=== PATIENT | male | born 1970 | race Caucasian/White ===

== ENCOUNTER 2021-02-05 10:46 | Emergency (ER) | payer BC, OTHER ==
[2021-02-05 11:06] VITALS: BMI 21.9
[2021-02-05] MEDS ORDERED: KETOROLAC TROMETHAMINE 30 MG/1 ML VIAL IVPUSH ONE (11:44)
[2021-02-05] MEDS ORDERED: KETOROLAC TROMETHAMINE 30 MG/1 ML VIAL ONE (12:00)
[2021-02-05 12:07] LABS: BASO % 1.1 % (0-2.0); EOS % 1.7 % (0-4.5); HEMATOCRIT 38.4 % (35.4-49); HEMOGLOBIN 13.5 GM/dL (11.7-16.9); LYMPH % 13.3 % (8-40); MCHC 35.2 g/dl (32.0-35.9); MEAN CELL VOLUME 82.5 fl (80-96); MEAN PLT VOLUME 8.5 fl (7.5-11.1); MONO % 7.5 % (3.8-10.2); NEUT % 76.4 % (42.8-82.8); PLATELET COUNT 211 10^3/uL (134-434); RBC 4.66 M/mm3 (4.00-5.60); RDW 13.1 % (11.9-15.9); WHITE BLOOD COUNT 7.2 K/mm3 (4.0-10.0)
[2021-02-05 12:19] LABS: INR 1.18 (0.83-1.09); PROTHROMBIN TIME (PATIENT) 13.8 SEC (9.7-13.0)
[2021-02-05 12:22] LABS: ACTIVATED PTT 32.5 SECONDS (25.2-36.5)
[2021-02-05 12:35] LABS: CHLORIDE 104 mmol/L (98-107); SODIUM 139 mmol/L (136-145)
[2021-02-05 12:37] LABS: ALBUMIN 3.4 g/dl (3.4-5.0); ANION GAP 6 MMOL/L (8-16); BLOOD UREA NITROGEN 14.4 mg/dL (7-18); CALCIUM 8.8 mg/dL (8.5-10.1); CO2 29 mmol/L (21-32); GLUCOSE,RANDOM 87 mg/dL (74-106)
[2021-02-05 12:40] LABS: SGOT/AST 26 U/L (15-37); SGPT/ALT 35 U/L (13-61)
[2021-02-05 12:41] LABS: CREATININE 0.7 mg/dL (0.55-1.3)
[2021-02-05 12:42] LABS: BILIRUBIN,TOTAL 0.5 mg/dL (0.2-1); TOT PROT 6.6 g/dl (6.4-8.2)
[2021-02-05 12:43] LABS: ALK PHOS 58 U/L (45-117)
[2021-02-05 12:45] LABS: N-TERMINAL BNP 125.8 pg/ml (5-125)
[2021-02-05 15:13] VITALS: BP 103/63; PULSE 53; TEMP 98.1
== END 2021-02-05 15:34 | disposition home or self-care (01) ==
LOC: JER 10:46
PROC: 3E0233Z Introduction of Anti-inflammatory into Muscle, Percutaneous Approach (ICD-10-PCS; principal; 2021-02-05)
DX: R07.9 Chest pain, unspecified (principal)
CPT/HCPCS: 36415; 71046-TC-FY; 71275-TC; 80053; 82550; 82553; 83880; 84484; 85025; 85379; 85610; 85730; 93005; 93010; 99284-25; Q9967

== ENCOUNTER 2021-08-21 14:34 | Inpatient (IN) | payer OTHER ==
[2021-08-21] MEDS ORDERED: LOPERAMIDE HCL 2 MG CAPSULE PO PRN (16:38)
[2021-08-21] MEDS ORDERED: MELATONIN 5 MG TABLETS PO PRN (16:38)
[2021-08-21] MEDS ORDERED: BISMUTH SUBSALICYLATE 524 MG/30 ML PO PRN (16:38)
[2021-08-21] MEDS ORDERED: MAG HYDROX/AL HYDROX/SIMETH 30 ML UNIT-DOSE CUP PO PRN (16:38)
[2021-08-21] MEDS ORDERED: ACETAMINOPHEN 325 MG TABLET (FP) PO PRN ×2 (16:38)
[2021-08-21] MEDS ORDERED: METHOCARBAMOL 500 MG TABLET PO PRN (16:38)
[2021-08-21] MEDS ORDERED: BENZOCAINE/MENTHOL (CHLORASEPTIC ) LOZENGE MM PRN (16:38)
[2021-08-21] MEDS ORDERED: P-EPHED 60MG/TRIPROLIDI 2.5MG TABLET PO PRN (16:38)
[2021-08-21] MEDS ORDERED: guaiFENesin 200 MG/10 ML 10 ML UNIT-DOSE CUPS PO PRN (16:38)
[2021-08-21] MEDS ORDERED: hydrOXYzine PAMOATE 25 MG CAPSULE (FP) PO PRN (16:38)
[2021-08-21] MEDS ORDERED: ONDANSETRON *ODT* 4 MG TABLET SL PRN (16:38)
[2021-08-21] MEDS ORDERED: MAGNESIUM CITRATE 300 ML BOTTLE PO PRN (16:38)
[2021-08-21] MEDS ORDERED: NICOTINE POLACRILEX 2 MG GUM BUC PRN (16:38)
[2021-08-21] MEDS ORDERED: IBUPROFEN 400 MG TABLET (FP) PO PRN (16:38)
[2021-08-21] MEDS ORDERED: MAGNESIUM HYDROX 2400MG/30ML ORAL SUSPENSION 30 ML CUP PO PRN (16:38)
[2021-08-21] MEDS ORDERED: DICYCLOMINE HCL 10 MG CAPSULE PO PRN (16:38)
[2021-08-21 18:10] VITALS: BMI 21.4
[2021-08-22] MEDS: THIAMINE HCL 100 MG TABLET (FP) PO SCH ×2 (00:39→22:53)
[2021-08-22] MEDS ORDERED: diazePAM 5 MG TABLET PO PRN (08:00)
[2021-08-22] MEDS: PRENATAL VITAMINS W/ FOLIC ACID TABLET (FP) PO SCH (11:17)
[2021-08-22 12:06] LABS: HEMATOCRIT 41.9 % (35.4-49); HEMOGLOBIN 14.1 GM/dL (11.7-16.9); MCH 27.9 pg (25.7-33.7); MCHC 33.6 g/dl (32.0-35.9); MEAN CELL VOLUME 83.1 fl (80-96); PLATELET COUNT 208 10^3/uL (134-434); RBC 5.05 M/mm3 (4.00-5.60); RDW 13.1 % (11.9-15.9); WHITE BLOOD COUNT 7.2 K/mm3 (4.0-10.0)
[2021-08-22 12:08] LABS: CALCIUM 9.5 mg/dL (8.5-10.1)
[2021-08-22 12:09] LABS: ALBUMIN 4.2 g/dl (3.4-5.0)
[2021-08-22 12:12] LABS: CREATININE 0.8 mg/dL (0.55-1.3)
[2021-08-22 12:14] LABS: BILIRUBIN,TOTAL 1.2 mg/dL (0.2-1); TOT PROT 7.4 g/dl (6.4-8.2)
[2021-08-22] MEDS ORDERED: TRIMETHOBENZAMIDE HCL 300 MG CAPSULE PO ONE (20:30)
[2021-08-22] MEDS ORDERED: TRIMETHOBENZAMIDE HCL 200MG/2ML INJ IM PRN (21:32)
[2021-08-23] MEDS ORDERED: BUPRENORPHINE HCL 2 MG TAB.SUBL SL ONE (00:13)
[2021-08-23] MEDS ORDERED: BUPRENORPHINE/NALOXONE 8 MG/2 MG FILM PACKET SL ONE ×2 (00:24→10:00)
[2021-08-23] MEDS: PRENATAL VITAMINS W/ FOLIC ACID TABLET (FP) PO SCH (10:02)
[2021-08-23] MEDS ORDERED: cloNIDine HCL 0.1 MG TABLET PO ONE (21:41)
[2021-08-23] MEDS: THIAMINE HCL 100 MG TABLET (FP) PO SCH (23:02)
[2021-08-23] MEDS: BUPRENORPHINE/NALOXONE 4 MG/1 MG FILM PACKET SL SCH (23:02)
[2021-08-24] MEDS: BUPRENORPHINE/NALOXONE 4 MG/1 MG FILM PACKET SL SCH ×2 (10:46→22:34)
[2021-08-24] MEDS: PRENATAL VITAMINS W/ FOLIC ACID TABLET (FP) PO SCH (10:47)
[2021-08-24] MEDS ORDERED: amLODIPine BESYLATE 10 MG TABLET (FP) PO SCH (12:15)
[2021-08-24 17:29] VITALS: BP 132/97; PULSE 143; TEMP 97.3
[2021-08-24] MEDS: THIAMINE HCL 100 MG TABLET (FP) PO SCH (22:34)
[2021-08-25] MEDS ORDERED: BUPRENORPHINE/NALOXONE 2 MG/0.5 MG FILM PACKET SL ONE (10:00)
[2021-08-25 16:08] LABS: SARS-CoV-2 NAA Not Detected (Not Detected)
[2021-08-25] MEDS ORDERED: BUPRENORPHINE/NALOXONE 4 MG/1 MG FILM PACKET SL ONE (22:00)
[2021-08-26] MEDS ORDERED: BUPRENORPHINE/NALOXONE 2 MG/0.5 MG FILM PACKET SL SCH (10:00)
== END 2021-08-24 23:58 | disposition short-term general hospital (02) | DRG 773 ==
LOC: YASAS 14:34 → Y3N 08-22 10:22
PROVIDERS: ADMIT Allergy & Immunology; ATTEND Surgery
PROC: HZ2ZZZZ Detoxification Services for Substance Abuse Treatment (ICD-10-PCS; principal; 2021-08-22)
DX: F11.23 Opioid dependence with withdrawal (principal); F12.20 Cannabis dependence, uncomplicated; F17.210 Nicotine dependence, cigarettes, uncomplicated; E80.6 Other disorders of bilirubin metabolism; R07.9 Chest pain, unspecified; R00.0 Tachycardia, unspecified; R73.9 Hyperglycemia, unspecified; Z87.19 Personal history of other diseases of the digestive system
CPT/HCPCS: 36415; 80053; 85027; 86780; 87811; 93005; 93010; C9803-CS; J0735; Q0162; U0003; U0005

== ENCOUNTER 2021-08-24 19:12 | Inpatient (IN) | payer OTHER ==
[2021-08-24 19:41] VITALS: BMI 20.7
[2021-08-24] MEDS ORDERED: FAMOTIDINE 20 MG/50 ML IVPB 20 MG/50 ML MG IVPB ONE ×2 (19:56→20:03)
[2021-08-24] MEDS ORDERED: ACETAMINOPHEN 1000 MG/100 ML BAG IVPB ONE (19:56)
[2021-08-24] MEDS ORDERED: ONDANSETRON 4 MG/2 ML VIAL IVPUSH ONE (19:56)
[2021-08-24] MEDS ORDERED: SODIUM CHLORIDE 0.9% 500 ML INFUS.BAG IV ONE (19:56)
[2021-08-24] MEDS ORDERED: ONDANSETRON 4 MG/2 ML VIAL ONE (20:03)
[2021-08-24] MEDS ORDERED: ACETAMINOPHEN INJECTION 100 ML IVPB ONE (20:03)
[2021-08-24 20:17] LABS: BASO % 0.3 % (0-2.0); HEMATOCRIT 49.7 % (35.4-49); HEMOGLOBIN 17.1 GM/dL (11.7-16.9); LYMPH % 10.1 % (8-40); MCH 27.8 pg (25.7-33.7); MCHC 34.5 g/dl (32.0-35.9); MEAN CELL VOLUME 80.7 fl (80-96); MEAN PLT VOLUME 8.2 fl (7.5-11.1); MONO % 12.1 % (3.8-10.2); NEUT % 77.5 % (42.8-82.8); PLATELET COUNT 254 10^3/uL (134-434); RBC 6.16 M/mm3 (4.00-5.60); RDW 13.5 % (11.9-15.9); WHITE BLOOD COUNT 17.2 K/mm3 (4.0-10.0)
[2021-08-24 20:23] LABS: INR 1.22 (0.83-1.09); PROTHROMBIN TIME (PATIENT) 14.1 SEC (9.7-13.0)
[2021-08-24 20:25] LABS: ACTIVATED PTT 33.7 SECONDS (25.2-36.5)
[2021-08-24 20:37] LABS: CHLORIDE 95 mmol/L (98-107); SODIUM 133 mmol/L (136-145)
[2021-08-24 20:39] LABS: ALBUMIN 4.4 g/dl (3.4-5.0); ANION GAP 10 MMOL/L (8-16); BLOOD UREA NITROGEN 23.7 mg/dL (7-18); CALCIUM 10.1 mg/dL (8.5-10.1); CO2 28 mmol/L (21-32); GLUCOSE,RANDOM 119 mg/dL (74-106); LIPASE 257 U/L (73-393); MAGNESIUM 2.3 mg/dL (1.8-2.4)
[2021-08-24 20:42] LABS: CREATININE 0.8 mg/dL (0.55-1.3); SGOT/AST 75 U/L (15-37); SGPT/ALT 61 U/L (13-61)
[2021-08-24 20:44] LABS: BILIRUBIN,TOTAL 1.3 mg/dL (0.2-1)
[2021-08-24 20:45] LABS: ALK PHOS 69 U/L (45-117)
[2021-08-24] MEDS ORDERED: ASPIRIN 81 MG CHEWABLE TABLETS PO ONE (20:49)
[2021-08-24] MEDS ORDERED: ASPIRIN 81 MG CHEWABLE TABLETS ONE (20:57)
[2021-08-24] MEDS ORDERED: ENOXAPARIN NA (PORCINE) 60 MG/0.6 ML DISP.SYRIN SQ ONE ×2 (20:57→21:00)
[2021-08-24] MEDS ORDERED: ENOXAPARIN NA (PORCINE) 60 MG/0.6 ML DISP.SYRIN SQ SCH (21:00)
[2021-08-24] MEDS ORDERED: SODIUM CHLORIDE 1,000 ML IV SCH (22:45)
[2021-08-24] MEDS ORDERED: THIAMINE HCL 200 MG/2 ML VIAL IVPB ONE (22:50)
[2021-08-24] MEDS ORDERED: SODIUM CHLORIDE 500 ML IV STA (22:54)
[2021-08-24] MEDS ORDERED: MELATONIN 5 MG TABLETS PO PRN (23:00)
[2021-08-24] MEDS ORDERED: TRIMETHOBENZAMIDE HCL 200MG/2ML INJ IM PRN (23:00)
[2021-08-24] MEDS ORDERED: BUPRENORPHINE/NALOXONE 4 MG/1 MG FILM PACKET SL ONE (23:03)
[2021-08-24] MEDS ORDERED: ATORVASTATIN CA 80 MG TABLET (FP) PO SCH (23:05)
[2021-08-24] MEDS ORDERED: BUPRENORPHINE/NALOXONE 2 MG/0.5 MG FILM PACKET SL ONE (23:15)
[2021-08-25] MEDS ORDERED: ATORVASTATIN CA 80 MG TABLET (FP) ONE (00:01)
[2021-08-25] MEDS ORDERED: THIAMINE HCL 200 MG/2 ML VIAL ONE (00:01)
[2021-08-25] MEDS ORDERED: BUPRENORPHINE/NALOXONE 2 MG/0.5 MG FILM PACKET ONE ×3 (00:07→09:25)
[2021-08-25] MEDS ORDERED: ALBUTEROL SO4 HFA INHALER IH PRN (02:03)
[2021-08-25 02:42] LABS: BASO % 0.3 % (0-2.0); HEMATOCRIT 47.1 % (35.4-49); HEMOGLOBIN 15.9 GM/dL (11.7-16.9); LYMPH % 11.6 % (8-40); MCH 27.7 pg (25.7-33.7); MCHC 33.7 g/dl (32.0-35.9); MEAN PLT VOLUME 8.9 fl (7.5-11.1); NEUT % 76.1 % (42.8-82.8); PLATELET COUNT 228 10^3/uL (134-434); RBC 5.74 M/mm3 (4.00-5.60); RDW 13.5 % (11.9-15.9); WHITE BLOOD COUNT 14.8 K/mm3 (4.0-10.0)
[2021-08-25] MEDS ORDERED: POLYETHYLENE GLYCOL (HEALTHYLAX) 3350 17 GM PACKET ONE ×2 (05:44→15:41)
[2021-08-25] MEDS ORDERED: DOCUSATE SODIUM 100 MG CAPSULE (FP) PO ONE ×2 (05:45→15:42)
[2021-08-25] MEDS: DOCUSATE SODIUM 100 MG CAPSULE (FP) PO SCH ×2 (06:16→15:40)
[2021-08-25] MEDS: POLYETHYLENE GLYCOL (HEALTHYLAX) 3350 17 GM PACKET PO SCH ×2 (06:17→15:40)
[2021-08-25 06:41] LABS: URINE APPEARANCE CLEAR; URINE BILIRUBIN NEGATIVE (NEGATIVE); URINE COLOR YELLOW; URINE GLUCOSE (UA) NEGATIVE (NEGATIVE); URINE KETONE NEGATIVE (NEGATIVE); URINE LEUK ESTERASE NEGATIVE (NEGATIVE); URINE NITRITE NEGATIVE (NEGATIVE); URINE PROTEIN TRACE (NEGATIVE)
[2021-08-25 07:39] LABS: BASO % 0.2 % (0-2.0); HEMATOCRIT 45.4 % (35.4-49); HEMOGLOBIN 15.3 GM/dL (11.7-16.9); LYMPH % 11.5 % (8-40); MCH 27.3 pg (25.7-33.7); MCHC 33.6 g/dl (32.0-35.9); MEAN CELL VOLUME 81.3 fl (80-96); MEAN PLT VOLUME 8.7 fl (7.5-11.1); MONO % 11.7 % (3.8-10.2); NEUT % 76.6 % (42.8-82.8); PLATELET COUNT 212 10^3/uL (134-434); RBC 5.59 M/mm3 (4.00-5.60); RDW 13.3 % (11.9-15.9); WHITE BLOOD COUNT 12.8 K/mm3 (4.0-10.0)
[2021-08-25 08:15] LABS: BILIRUBIN,TOTAL 1.3 mg/dL (0.2-1)
[2021-08-25 08:16] LABS: TOT PROT 6.9 g/dl (6.4-8.2)
[2021-08-25 08:18] LABS: PHOSPHOROUS 2.6 mg/dL (2.5-4.9)
[2021-08-25 08:21] LABS: CALCIUM 8.7 mg/dL (8.5-10.1)
[2021-08-25 08:22] LABS: ALBUMIN 3.8 g/dl (3.4-5.0); MAGNESIUM 2.2 mg/dL (1.8-2.4)
[2021-08-25 08:24] LABS: CREATININE 0.8 mg/dL (0.55-1.3)
[2021-08-25] MEDS ORDERED: METOPROLOL TARTRATE 25 MG TABLET (FP) ONE (09:24)
[2021-08-25] MEDS ORDERED: FOLIC ACID 1 MG TABLET (FP) ONE (09:25)
[2021-08-25] MEDS ORDERED: ENOXAPARIN NA (PORCINE) 60 MG/0.6 ML DISP.SYRIN SQ ONE (09:25)
[2021-08-25] MEDS ORDERED: THIAMINE HCL 100 MG TABLET (FP) ONE (09:25)
[2021-08-25] MEDS ORDERED: FOLIC ACID 1 MG TABLET (FP) PO SCH (10:00)
[2021-08-25] MEDS ORDERED: THIAMINE HCL 100 MG TABLET (FP) PO SCH (10:00)
[2021-08-25] MEDS ORDERED: METOPROLOL TARTRATE 25 MG TABLET (FP) PO SCH ×2 (10:00→22:00)
[2021-08-25] MEDS ORDERED: NICOTINE 14 MG/24 HOURS TOPICAL PATCH TD SCH (10:00)
[2021-08-25] MEDS ORDERED: ENOXAPARIN NA (PORCINE) 60 MG/0.6 ML DISP.SYRIN SQ SCH (10:00)
[2021-08-25] MEDS ORDERED: BUPRENORPHINE/NALOXONE 2 MG/0.5 MG FILM PACKET SL ONE ×2 (10:00→22:00)
[2021-08-25 15:57] VITALS: BP 142/92; PULSE 72; TEMP 98.1
[2021-08-26] MEDS ORDERED: BUPRENORPHINE/NALOXONE 2 MG/0.5 MG FILM PACKET SL ONE (10:00)
== END 2021-08-25 17:49 | disposition home or self-care (01) | DRG 198 ==
LOC: JER 19:12 → JERBED 21:11
PROVIDERS: ADMIT Internal Medicine; ATTEND Nurse Practitioner Acute Care
DX: I24.8 Other forms of acute ischemic heart disease (principal); R07.89 Other chest pain; E86.0 Dehydration; F10.20 Alcohol dependence, uncomplicated; F11.10 Opioid abuse, uncomplicated; F17.210 Nicotine dependence, cigarettes, uncomplicated; I45.10 Unspecified right bundle-branch block; J45.909 Unspecified asthma, uncomplicated; K59.00 Constipation, unspecified; D72.829 Elevated white blood cell count, unspecified; D75.1 Secondary polycythemia; K59.03 Drug induced constipation; I50.30 Unspecified diastolic (congestive) heart failure; F12.90 Cannabis use, unspecified, uncomplicated
CPT/HCPCS: 0241U-QW; 36415; 71045-TC-FY; 74176-TC; 80053; 80061; 81003; 83690; 83735; 84100; 84443; 84479; 84484; 85025; 85610; 85730; 87086; 93005; 93010; 93306-TC; 99285-25

== ENCOUNTER 2021-08-28 16:56 | Inpatient (IN) | payer OTHER ==
[2021-08-28 17:26] VITALS: BMI 18.4
[2021-08-28] MEDS ORDERED: guaiFENesin 200 MG/10 ML 10 ML UNIT-DOSE CUPS PO PRN (17:35)
[2021-08-28] MEDS ORDERED: MAGNESIUM HYDROX 2400MG/30ML ORAL SUSPENSION 30 ML CUP PO PRN (17:35)
[2021-08-28] MEDS ORDERED: P-EPHED 60MG/TRIPROLIDI 2.5MG TABLET PO PRN (17:35)
[2021-08-28] MEDS ORDERED: IBUPROFEN 400 MG TABLET (FP) PO PRN (17:35)
[2021-08-28] MEDS ORDERED: MAGNESIUM CITRATE 300 ML BOTTLE PO PRN (17:35)
[2021-08-28] MEDS ORDERED: LOPERAMIDE HCL 2 MG CAPSULE PO PRN (17:35)
[2021-08-28] MEDS ORDERED: MAG HYDROX/AL HYDROX/SIMETH 30 ML UNIT-DOSE CUP PO PRN (17:35)
[2021-08-28] MEDS ORDERED: NICOTINE 10 MG CARTRIDGE (INHALER) IH PRN (17:35)
[2021-08-28] MEDS: MELATONIN 5 MG TABLETS PO SCH (21:59)
[2021-08-28] MEDS: THIAMINE HCL 100 MG TABLET (FP) PO SCH (22:00)
[2021-08-28] MEDS: METOPROLOL TARTRATE 25 MG TABLET (FP) PO SCH (22:00)
[2021-08-28] MEDS: hydrOXYzine PAMOATE 25 MG CAPSULE (FP) PO SCH ×2 (22:01)
[2021-08-29] MEDS: hydrOXYzine PAMOATE 25 MG CAPSULE (FP) PO SCH ×2 (06:45→13:20)
[2021-08-29 10:16] LABS: PH,URINE 5.5 (5.0-8.0); URINE APPEARANCE CLEAR; URINE BILIRUBIN NEGATIVE (NEGATIVE); URINE COLOR YELLOW; URINE GLUCOSE (UA) NEGATIVE (NEGATIVE); URINE KETONE NEGATIVE (NEGATIVE); URINE LEUK ESTERASE NEGATIVE (NEGATIVE); URINE NITRITE NEGATIVE (NEGATIVE); URINE PROTEIN NEGATIVE (NEGATIVE); URINE UROBILINOGEN 0.2 mg/dL (0.2-1.0)
[2021-08-29] MEDS ORDERED: hydrOXYzine PAMOATE 25 MG CAPSULE (FP) PO PRN (10:34)
[2021-08-29] MEDS: METOPROLOL TARTRATE 25 MG TABLET (FP) PO SCH ×2 (10:40→21:21)
[2021-08-29] MEDS: PRENATAL VITAMINS W/ FOLIC ACID TABLET (FP) PO SCH (10:40)
[2021-08-29] MEDS: NICOTINE 7 MG/24 HOURS TOPICAL PATCH TD SCH (10:40)
[2021-08-29] MEDS: FOLIC ACID 1 MG TABLET (FP) PO SCH (10:40)
[2021-08-29] MEDS: THIAMINE HCL 100 MG TABLET (FP) PO SCH (21:21)
[2021-08-29] MEDS: MELATONIN 5 MG TABLETS PO SCH (21:22)
[2021-08-30] MEDS: METOPROLOL TARTRATE 25 MG TABLET (FP) PO SCH ×2 (09:54→21:18)
[2021-08-30] MEDS: PRENATAL VITAMINS W/ FOLIC ACID TABLET (FP) PO SCH (09:54)
[2021-08-30] MEDS: FOLIC ACID 1 MG TABLET (FP) PO SCH (09:54)
[2021-08-30] MEDS: NICOTINE 7 MG/24 HOURS TOPICAL PATCH TD SCH (09:56)
[2021-08-30] MEDS: MELATONIN 5 MG TABLETS PO SCH (21:18)
[2021-08-30] MEDS: THIAMINE HCL 100 MG TABLET (FP) PO SCH (21:18)
[2021-08-30] MEDS: ACETAMINOPHEN 325 MG TABLET (FP) PO PRN (21:18)
[2021-08-31] MEDS: ACETAMINOPHEN 325 MG TABLET (FP) PO PRN ×2 (06:04→20:43)
[2021-08-31] MEDS: METOPROLOL TARTRATE 25 MG TABLET (FP) PO SCH ×2 (10:04→21:31)
[2021-08-31] MEDS: NICOTINE 7 MG/24 HOURS TOPICAL PATCH TD SCH (10:04)
[2021-08-31] MEDS: PRENATAL VITAMINS W/ FOLIC ACID TABLET (FP) PO SCH (10:04)
[2021-08-31] MEDS: FOLIC ACID 1 MG TABLET (FP) PO SCH (10:04)
[2021-08-31] MEDS: MELATONIN 5 MG TABLETS PO SCH (21:31)
[2021-08-31] MEDS: THIAMINE HCL 100 MG TABLET (FP) PO SCH (21:31)
[2021-09-01] MEDS: FOLIC ACID 1 MG TABLET (FP) PO SCH (09:23)
[2021-09-01] MEDS: METOPROLOL TARTRATE 25 MG TABLET (FP) PO SCH (09:23)
[2021-09-01] MEDS: PRENATAL VITAMINS W/ FOLIC ACID TABLET (FP) PO SCH (09:23)
[2021-09-01] MEDS: NICOTINE 7 MG/24 HOURS TOPICAL PATCH TD SCH (09:23)
[2021-09-01 10:04] VITALS: BP 131/88; PULSE 97; TEMP 98.3
== END 2021-09-01 10:45 | disposition left against medical advice (07) | DRG 770 ==
LOC: YASAS 16:56 → Y3W 20:43
PROVIDERS: ADMIT Allergy & Immunology; ATTEND Psychiatry & Neurology Pain Medicine
PROC: HZ42ZZZ Group Counseling for Substance Abuse Treatment, Cognitive-Behavioral (ICD-10-PCS; principal; 2021-08-28)
DX: F11.20 Opioid dependence, uncomplicated (principal); F17.210 Nicotine dependence, cigarettes, uncomplicated; R07.9 Chest pain, unspecified; Z86.79 Personal history of other diseases of the circulatory system
CPT/HCPCS: 36415; 71046-TC-FY; 78452-TC; 80053; 81003; 83036; 83735; 83880; 84484; 85025; 85610; 85730; 93005; 93010; 93017; 99285-25; A9502; C9803-CS; G0378; J2785; U0003; U0005

== ENCOUNTER 2022-10-21 17:05 | Inpatient (IN) | payer OTHER ==
[2022-10-21] MEDS ORDERED: ACETAMINOPHEN 325 MG TABLET (FP) PO PRN (19:57)
[2022-10-21] MEDS ORDERED: NALOXONE HCL (KLOXXADO) 8 MG SPRAY NS PRN (19:57)
[2022-10-21] MEDS ORDERED: hydrOXYzine PAMOATE 25 MG CAPSULE (FP) PO PRN (19:57)
[2022-10-21] MEDS ORDERED: BENZONATATE 200 MG CAPSULE PO PRN (19:57)
[2022-10-21] MEDS ORDERED: ONDANSETRON *ODT* 4 MG TABLET SL PRN (19:57)
[2022-10-21] MEDS ORDERED: NALOXONE HCL 0.4 MG/ML VIAL IM PRN (19:57)
[2022-10-21] MEDS ORDERED: IBUPROFEN 600 MG TABLET (FP) PO PRN (19:57)
[2022-10-21] MEDS ORDERED: METHOCARBAMOL 500 MG TABLET PO PRN (19:57)
[2022-10-21] MEDS ORDERED: MAG HYDROX/AL HYDROX/SIMETH 30 ML UNIT-DOSE CUP PO PRN (19:57)
[2022-10-21] MEDS ORDERED: IBUPROFEN 400 MG TABLET (FP) PO PRN (19:57)
[2022-10-21] MEDS ORDERED: POLYETHYLENE GLYCOL (HEALTHYLAX) 3350 17 GM PACKET PO PRN (19:57)
[2022-10-21] MEDS ORDERED: MAGNESIUM HYDROX 2400MG/30ML ORAL SUSPENSION 30 ML CUP PO PRN (19:57)
[2022-10-21] MEDS ORDERED: BISMUTH SUBSALICYLATE 524 MG/30 ML PO PRN (19:57)
[2022-10-21] MEDS ORDERED: guaiFENesin 600 MG TABLET.ER (FP) PO PRN (19:57)
[2022-10-21] MEDS ORDERED: LOPERAMIDE HCL 2 MG CAPSULE PO PRN (19:57)
[2022-10-21] MEDS ORDERED: DICYCLOMINE HCL 10 MG CAPSULE PO PRN (19:57)
[2022-10-21] MEDS ORDERED: BENZOCAINE/MENTHOL (CHLORASEPTIC ) LOZENGE MM PRN (19:57)
[2022-10-21] MEDS ORDERED: ONDANSETRON *ODT* 4 MG TABLET ONE (20:49)
[2022-10-21] MEDS: MELATONIN 5 MG TABLETS PO SCH (22:59)
[2022-10-21] MEDS: THIAMINE HCL 100 MG TABLET (FP) PO SCH (22:59)
[2022-10-22] MEDS: PRENATAL VITAMINS W/ FOLIC ACID TABLET (FP) PO SCH (10:13)
[2022-10-22] MEDS: TRIMETHOBENZAMIDE HCL 200MG/2ML INJ IM PRN ×3 (10:13→19:21)
[2022-10-22] MEDS ORDERED: methaDONE HCL 10 MG TABLET (FOR DETOX USE ONLY) PO ONE (11:59)
[2022-10-22 15:24] LABS: HEMATOCRIT 41.1 % (35.4-49); HEMOGLOBIN 14.3 GM/dL (11.7-16.9); MCH 28.2 pg (25.7-33.7); MCHC 34.8 g/dl (32.0-35.9); MEAN CELL VOLUME 80.9 fl (80-96); MEAN PLT VOLUME 8.9 fl (7.5-11.1); PLATELET COUNT 186 10^3/uL (134-434); RBC 5.08 M/mm3 (4.00-5.60); RDW 13.5 % (11.9-15.9); WHITE BLOOD COUNT 11.2 K/mm3 (4.0-10.0)
[2022-10-22 15:30] LABS: ALBUMIN 4.6 g/dl (3.4-5.0); BLOOD UREA NITROGEN 17.4 mg/dL (7-18); CALCIUM 9.6 mg/dL (8.5-10.1)
[2022-10-22 15:33] LABS: CREATININE 0.8 mg/dL (0.55-1.3)
[2022-10-22 15:36] LABS: BILIRUBIN,TOTAL 1.3 mg/dL (0.2-1); TOT PROT 8.1 g/dl (6.4-8.2)
[2022-10-22] MEDS ORDERED: LORazepam 2 MG TABLET PO ONE (19:16)
[2022-10-22] MEDS: METHOCARBAMOL 500 MG TABLET PO PRN (19:20)
[2022-10-22] MEDS: METOPROLOL TARTRATE 25 MG TABLET (FP) PO SCH (21:39)
[2022-10-22] MEDS: POTASSIUM CHLORIDE TABS 20 MEQ TABLET.ER (FP) PO SCH (21:39)
[2022-10-22] MEDS: THIAMINE HCL 100 MG TABLET (FP) PO SCH (21:40)
[2022-10-22] MEDS: MELATONIN 5 MG TABLETS PO SCH (21:40)
[2022-10-23] MEDS: cloNIDine HCL 0.1 MG TABLET PO PRN ×2 (02:34→17:37)
[2022-10-23 09:13] LABS: POTASSIUM 3.6 mmol/L (3.5-5.1)
[2022-10-23 09:14] LABS: MAGNESIUM 2.1 mg/dL (1.8-2.4)
[2022-10-23] MEDS: METOPROLOL TARTRATE 25 MG TABLET (FP) PO SCH ×2 (09:47→22:36)
[2022-10-23] MEDS: POTASSIUM CHLORIDE TABS 20 MEQ TABLET.ER (FP) PO SCH ×2 (09:47→22:35)
[2022-10-23] MEDS: METHOCARBAMOL 500 MG TABLET PO PRN ×2 (09:47→22:36)
[2022-10-23] MEDS: PRENATAL VITAMINS W/ FOLIC ACID TABLET (FP) PO SCH (09:47)
[2022-10-23] MEDS: MELATONIN 5 MG TABLETS PO SCH (22:36)
[2022-10-23] MEDS: THIAMINE HCL 100 MG TABLET (FP) PO SCH (22:37)
[2022-10-24 06:27] VITALS: RESP 16
[2022-10-24 07:21] VITALS: BP 109/81; PULSE 99; TEMP 97.5
[2022-10-24] MEDS ORDERED: methaDONE HCL 10 MG TABLET (FOR DETOX USE ONLY) PO ONE (10:00)
[2022-10-26] MEDS ORDERED: methaDONE HCL 10 MG TABLET (FOR DETOX USE ONLY) PO ONE (10:00)
== END 2022-10-24 15:17 | disposition short-term general hospital (02) | DRG 773 ==
LOC: YASAS 17:05 → UNDOADMIN 20:17 → Y3N 20:17
PROVIDERS: ADMIT Allergy & Immunology; ATTEND Surgery
PROC: HZ2ZZZZ Detoxification Services for Substance Abuse Treatment (ICD-10-PCS; principal; 2022-10-21)
DX: F11.23 Opioid dependence with withdrawal (principal); F12.10 Cannabis abuse, uncomplicated; F17.210 Nicotine dependence, cigarettes, uncomplicated; E87.6 Hypokalemia; D72.829 Elevated white blood cell count, unspecified; I10 Essential (primary) hypertension; R07.9 Chest pain, unspecified; R11.2 Nausea with vomiting, unspecified; R63.4 Abnormal weight loss; Z68.20 Body mass index [BMI] 20.0-20.9, adult; Z87.11 Personal history of peptic ulcer disease; Z86.79 Personal history of other diseases of the circulatory system
CPT/HCPCS: 36415; 80053; 83735; 84132; 85027; 86780; 87635; 93005; 93010; Q0162

== ENCOUNTER 2022-10-24 08:26 | Inpatient (IN) | payer OTHER ==
[2022-10-24 08:47] VITALS: BMI 19.2
[2022-10-24] MEDS ORDERED: ACETAMINOPHEN 1000 MG/100 ML BAG IVPB ONE (09:02)
[2022-10-24] MEDS ORDERED: FAMOTIDINE 20 MG/50 ML IVPB 20 MG/50 ML MG IVPB ONE ×2 (09:02→09:12)
[2022-10-24] MEDS ORDERED: SODIUM CHLORIDE 0.9% 500 ML INFUS.BAG IV ONE (09:02)
[2022-10-24] MEDS ORDERED: MAG HYDROX/AL HYDROX/SIMETH 30 ML UNIT-DOSE CUP PO ONE (09:02)
[2022-10-24] MEDS ORDERED: ACETAMINOPHEN INJECTION 100 ML IVPB ONE (09:11)
[2022-10-24] MEDS ORDERED: MAG HYDROX/AL HYDROX/SIMETH 30 ML UNIT-DOSE CUP ONE (09:12)
[2022-10-24] MEDS ORDERED: methaDONE HCL 10 MG TABLET PO ONE (09:21)
[2022-10-24 09:29] LABS: HEMATOCRIT 52.4 % (35.4-49); HEMOGLOBIN 18.4 GM/dL (11.7-16.9); MCH 28.1 pg (25.7-33.7); MCHC 35.2 g/dl (32.0-35.9); MEAN PLT VOLUME 9.6 fl (7.5-11.1); PLATELET COUNT 172 10^3/uL (134-434); RBC 6.55 M/mm3 (4.00-5.60); WHITE BLOOD COUNT 21.7 K/mm3 (4.0-10.0)
[2022-10-24] MEDS ORDERED: methaDONE HCL 10 MG TABLET ONE (09:32)
[2022-10-24 09:39] LABS: INR 1.3 (0.83-1.09)
[2022-10-24 09:47] LABS: CHLORIDE 102 mmol/L (98-107); POTASSIUM 4.6 mmol/L (3.5-5.1); SODIUM 134 mmol/L (136-145)
[2022-10-24 09:51] LABS: ANION GAP 9 MMOL/L (8-16); CALCIUM 10.3 mg/dL (8.5-10.1); CO2 23 mmol/L (21-32); GLUCOSE,RANDOM 110 mg/dL (74-106); LIPASE 215 U/L (73-393); MAGNESIUM 2.2 mg/dL (1.8-2.4)
[2022-10-24 09:54] LABS: CREATININE 0.9 mg/dL (0.55-1.3); PHOSPHOROUS 2.8 mg/dL (2.5-4.9); SGOT/AST 135 U/L (15-37); SGPT/ALT 103 U/L (13-61)
[2022-10-24 09:55] LABS: BILIRUBIN,TOTAL 1.6 mg/dL (0.2-1)
[2022-10-24 09:56] LABS: TOT PROT 7.8 g/dl (6.4-8.2)
[2022-10-24 09:57] LABS: ALK PHOS 68 U/L (45-117)
[2022-10-24 10:15] LABS: N-TERMINAL BNP 35128.6 pg/ml (5-125)
[2022-10-24] MEDS ORDERED: VANCOMYCIN 1,000 MG in DEXTROSE 5%-WATER - 250 ML IVPB ONE ×2 (10:48→13:08)
[2022-10-24] MEDS ORDERED: PIPERACILLIN/TAZOBACTAM 4.5 GM VIAL IVPB ONE ×2 (10:48→13:08)
[2022-10-24 11:01] LABS: ANISOCYTOSIS 0; HELMET CELLS 0; HOWELL-JOLLY BODIES 0; MACROCYTOSIS 0; OVALOCYTE 0; ROULEAU 0; SICKELED CELLS 0; TARGET CELLS 0; TEAR DROP CELLS 0; TOXIC GRANULATION 0
[2022-10-24] MEDS ORDERED: HEPARIN NA (PORCINE) 5,000 UNITS/ML 1ML VIAL IVPUSH ONE (12:28)
[2022-10-24] MEDS ORDERED: HEPARIN NA (PORCINE) 5,000 UNITS/ML 1ML VIAL IVPUSH PRN (12:28)
[2022-10-24] MEDS ORDERED: HEPARIN INFUSION - 25,000 UNITS/500 ML INFUS.BAG IVPB ONE (12:48)
[2022-10-24] MEDS ORDERED: HEPARIN NA (PORCINE) 5,000 UNITS/ML 1ML VIAL ONE (12:49)
[2022-10-24 13:05] LABS: EPI CELLS 4 /uL (0-25.1); HYALINE CASTS 2 /uL (0-3.1); PH,URINE 5.5 (5.0-8.0); URINE APPEARANCE CLEAR; URINE BACTERIA 7 /uL (0-1359); URINE BILIRUBIN NEGATIVE (NEGATIVE); URINE COLOR YELLOW; URINE GLUCOSE (UA) NEGATIVE (NEGATIVE); URINE KETONE NEGATIVE (NEGATIVE); URINE LEUK ESTERASE NEGATIVE (NEGATIVE); URINE NITRITE NEGATIVE (NEGATIVE); URINE PROTEIN 2+ (NEGATIVE); URINE RBC 10 /uL (0-23.9); URINE UROBILINOGEN 0.2 mg/dL (0.2-1.0); URINE WBC 7 /uL (0-25.8)
[2022-10-24] MEDS: HEPARIN INFUSION - 25,000 UNITS/500 ML INFUS.BAG IVPB SCH (13:12)
[2022-10-24] MEDS ORDERED: VANCOMYCIN/WATER FOR INJ (PEG) 1,000 MG/200 ML BAG IVPB ONE (13:45)
[2022-10-24] MEDS ORDERED: NITROGLYCERIN SUBLINGUAL 1/150 0.4 MG TAB SL PRN (14:26)
[2022-10-24] MEDS ORDERED: ASPIRIN 81 MG CHEWABLE TABLETS PO ONE (14:27)
[2022-10-24] MEDS ORDERED: ASPIRIN 81 MG CHEWABLE TABLETS PO SCH (14:30)
[2022-10-24] MEDS ORDERED: metoPROLOL SUCCINATE 25 MG TAB.SR.24H (FP) PO SCH (14:30)
[2022-10-24] MEDS ORDERED: metoPROLOL SUCCINATE 25 MG TAB.SR.24H (FP) PO ONE (15:02)
[2022-10-24] MEDS ORDERED: ASPIRIN 81 MG CHEWABLE TABLETS ONE (15:03)
[2022-10-24] MEDS: ASPIRIN 81 MG CHEWABLE TABLETS PO SCH (15:28)
[2022-10-24 16:47] LABS: CHOLESTEROL 147 mg/dL (50-200)
[2022-10-24 16:49] LABS: LDL CHOLESTEROL (ONLY SJRH) 54 mg/dL (5-100)
[2022-10-24 16:50] LABS: HDL CHOLESTEROL 81 mg/dL (40-60)
[2022-10-25] MEDS ORDERED: MAG HYDROX/AL HYDROX/SIMETH 30 ML UNIT-DOSE CUP PO ONE (01:23)
[2022-10-25] MEDS ORDERED: ACETAMINOPHEN 1000 MG/100 ML BAG IVPB ONE (01:23)
[2022-10-25] MEDS: HEPARIN NA (PORCINE) 5,000 UNITS/ML 1ML VIAL IVPUSH PRN (02:26)
[2022-10-25] MEDS: ASPIRIN 81 MG CHEWABLE TABLETS PO SCH (09:02)
[2022-10-25] MEDS: PANTOPRAZOLE 40 MG TABLET PO SCH (09:02)
[2022-10-25 09:33] LABS: BASO % 0.2 % (0-2.0); HEMATOCRIT 46.8 % (35.4-49); HEMOGLOBIN 16.3 GM/dL (11.7-16.9); LYMPH % 12.4 % (8-40); MCH 28.3 pg (25.7-33.7); MCHC 34.9 g/dl (32.0-35.9); MEAN CELL VOLUME 81.2 fl (80-96); MEAN PLT VOLUME 9.9 fl (7.5-11.1); MONO % 9.2 % (3.8-10.2); NEUT % 78.2 % (42.8-82.8); PLATELET COUNT 149 10^3/uL (134-434); RBC 5.76 M/mm3 (4.00-5.60); RDW 13.8 % (11.9-15.9)
[2022-10-25 09:41] LABS: POTASSIUM 3.8 mmol/L (3.5-5.1)
[2022-10-25 09:51] LABS: CALCIUM 8.9 mg/dL (8.5-10.1)
[2022-10-25 09:52] LABS: BLOOD UREA NITROGEN 26.5 mg/dL (7-18)
[2022-10-25 09:55] LABS: CREATININE 0.9 mg/dL (0.55-1.3)
[2022-10-25] MEDS ORDERED: ASPIRIN 81 MG CHEWABLE TABLETS PO SCH ×2 (10:00)
[2022-10-25] MEDS: HEPARIN INFUSION - 25,000 UNITS/500 ML INFUS.BAG IVPB SCH (15:15)
[2022-10-25] MEDS: METOPROLOL TARTRATE 25 MG TABLET (FP) PO SCH ×2 (15:22→18:11)
[2022-10-25] MEDS: traZODone HCL 50 MG TABLET (FP) PO SCH ×2 (21:39→22:41)
[2022-10-26] MEDS: METOPROLOL TARTRATE 25 MG TABLET (FP) PO SCH ×5 (02:34→17:53)
[2022-10-26 08:22] LABS: POTASSIUM 4.3 mmol/L (3.5-5.1)
[2022-10-26 08:24] LABS: HEMATOCRIT 47.8 % (35.4-49); HEMOGLOBIN 16.4 GM/dL (11.7-16.9); MCH 27.9 pg (25.7-33.7); MCHC 34.2 g/dl (32.0-35.9); MEAN CELL VOLUME 81.4 fl (80-96); MEAN PLT VOLUME 10.4 fl (7.5-11.1); PLATELET COUNT 165 10^3/uL (134-434); RBC 5.87 M/mm3 (4.00-5.60); RDW 13.6 % (11.9-15.9); WHITE BLOOD COUNT 9.9 K/mm3 (4.0-10.0)
[2022-10-26 08:26] LABS: CALCIUM 8.8 mg/dL (8.5-10.1)
[2022-10-26 08:27] LABS: BLOOD UREA NITROGEN 21.7 mg/dL (7-18); MAGNESIUM 2.1 mg/dL (1.8-2.4)
[2022-10-26 08:30] LABS: CREATININE 0.8 mg/dL (0.55-1.3); PHOSPHOROUS 3.1 mg/dL (2.5-4.9)
[2022-10-26] MEDS ORDERED: methaDONE HCL 10 MG TABLET PO ONE (10:53)
[2022-10-26] MEDS: ASPIRIN 81 MG CHEWABLE TABLETS PO SCH (11:00)
[2022-10-26] MEDS: PANTOPRAZOLE 40 MG TABLET PO SCH (11:00)
[2022-10-26] MEDS: HEPARIN INFUSION - 25,000 UNITS/500 ML INFUS.BAG IVPB SCH (12:57)
[2022-10-26] MEDS: OSELTAMIVIR PHOSPHATE 75 MG CAPSULE PO SCH (17:15)
[2022-10-26] MEDS: traZODone HCL 50 MG TABLET (FP) PO SCH ×2 (21:07→21:13)
[2022-10-27 08:53] LABS: HEMATOCRIT 42.5 % (35.4-49); HEMOGLOBIN 14.6 GM/dL (11.7-16.9); MCH 28.2 pg (25.7-33.7); MCHC 34.3 g/dl (32.0-35.9); MEAN CELL VOLUME 82.2 fl (80-96); MEAN PLT VOLUME 10.7 fl (7.5-11.1); PLATELET COUNT 170 10^3/uL (134-434); RBC 5.18 M/mm3 (4.00-5.60); RDW 13.2 % (11.9-15.9); WHITE BLOOD COUNT 7.5 K/mm3 (4.0-10.0)
[2022-10-27 09:03] LABS: POTASSIUM 4.2 mmol/L (3.5-5.1)
[2022-10-27] MEDS: CLOPIDOGREL BISULFATE 75 MG TABLET (FP) PO SCH (09:03)
[2022-10-27] MEDS: OSELTAMIVIR PHOSPHATE 75 MG CAPSULE PO SCH (09:03)
[2022-10-27] MEDS: ASPIRIN 81 MG CHEWABLE TABLETS PO SCH (09:03)
[2022-10-27] MEDS: LOSARTAN POTASSIUM 25 MG TABLET PO SCH (09:03)
[2022-10-27] MEDS: PANTOPRAZOLE 40 MG TABLET PO SCH (09:03)
[2022-10-27 09:06] LABS: ALBUMIN 3.4 g/dl (3.4-5.0); BLOOD UREA NITROGEN 21.8 mg/dL (7-18); CALCIUM 8.6 mg/dL (8.5-10.1); MAGNESIUM 2.1 mg/dL (1.8-2.4)
[2022-10-27 09:09] LABS: CREATININE 0.7 mg/dL (0.55-1.3); PHOSPHOROUS 3.1 mg/dL (2.5-4.9)
[2022-10-27 09:11] LABS: BILIRUBIN,TOTAL 0.8 mg/dL (0.2-1); TOT PROT 6.3 g/dl (6.4-8.2)
[2022-10-27] MEDS: HEPARIN INFUSION - 25,000 UNITS/500 ML INFUS.BAG IVPB SCH ×2 (09:21→23:14)
[2022-10-27] MEDS: HEPARIN NA (PORCINE) 5,000 UNITS/ML 1ML VIAL IVPUSH PRN (09:23)
[2022-10-27 09:56] LABS: COCAINE, UR NEGATIVE (NEGATIVE); OPIATES, URI NEGATIVE (NEGATIVE); URINE BARBITURATES NEGATIVE (NEGATIVE)
[2022-10-27 09:57] LABS: PHENCYCLIDINE,URINE NEGATIVE (NEGATIVE)
[2022-10-27 09:59] LABS: METHADONE, UR POSITIVE (NEGATIVE); URINE AMPHETAMINES NEGATIVE (NEGATIVE); URINE BENZODIAZEPINES NEGATIVE (NEGATIVE)
[2022-10-27] MEDS ORDERED: DOCUSATE SODIUM 100 MG CAPSULE (FP) PO ONE (12:46)
[2022-10-27 19:10] VITALS: RESP 18
[2022-10-27] MEDS ORDERED: ROSUVASTATIN CA 5 MG TABLET PO SCH (22:00)
[2022-10-27] MEDS ORDERED: ROSUVASTATIN CA 10 MG TABLET PO SCH (22:00)
[2022-10-27] MEDS: traZODone HCL 50 MG TABLET (FP) PO SCH ×2 (23:15→23:32)
[2022-10-28 07:13] VITALS: PULSE 82
[2022-10-28 08:54] LABS: HEMATOCRIT 42.9 % (35.4-49); HEMOGLOBIN 14.3 GM/dL (11.7-16.9); MCH 27.8 pg (25.7-33.7); MCHC 33.3 g/dl (32.0-35.9); MEAN CELL VOLUME 83.3 fl (80-96); MEAN PLT VOLUME 10.1 fl (7.5-11.1); PLATELET COUNT 180 10^3/uL (134-434); RBC 5.16 M/mm3 (4.00-5.60); RDW 13.4 % (11.9-15.9)
[2022-10-28 09:01] LABS: POTASSIUM 4.6 mmol/L (3.5-5.1)
[2022-10-28 09:05] LABS: ALBUMIN 3.4 g/dl (3.4-5.0); CALCIUM 8.7 mg/dL (8.5-10.1)
[2022-10-28 09:06] LABS: MAGNESIUM 2.1 mg/dL (1.8-2.4)
[2022-10-28 09:08] LABS: PHOSPHOROUS 3.8 mg/dL (2.5-4.9)
[2022-10-28 09:09] LABS: CREATININE 0.8 mg/dL (0.55-1.3)
[2022-10-28 09:10] LABS: TOT PROT 6.4 g/dl (6.4-8.2)
[2022-10-28 10:04] VITALS: BP 119/87; TEMP 98.3
[2022-10-28] MEDS: CLOPIDOGREL BISULFATE 75 MG TABLET (FP) PO SCH (10:13)
[2022-10-28] MEDS: HEPARIN NA (PORCINE) 5,000 UNITS/ML 1ML VIAL IVPUSH PRN (10:13)
[2022-10-28] MEDS: LOSARTAN POTASSIUM 25 MG TABLET PO SCH (10:13)
[2022-10-28] MEDS: ASPIRIN 81 MG CHEWABLE TABLETS PO SCH (10:13)
[2022-10-28] MEDS: PANTOPRAZOLE 40 MG TABLET PO SCH (10:13)
[2022-10-28] MEDS: OSELTAMIVIR PHOSPHATE 75 MG CAPSULE PO SCH (10:13)
== END 2022-10-28 15:20 | disposition short-term general hospital (02) | DRG 190 ==
LOC: JER 08:26 → JERBED 13:10 → J4W 16:46
PROVIDERS: ADMIT Internal Medicine; ATTEND Internal Medicine
PROC: HZ2ZZZZ Detoxification Services for Substance Abuse Treatment (ICD-10-PCS; principal; 2022-10-24)
DX: I21.4 Non-ST elevation (NSTEMI) myocardial infarction (principal); F12.10 Cannabis abuse, uncomplicated; F11.23 Opioid dependence with withdrawal; M62.82 Rhabdomyolysis; G43.909 Migraine, unspecified, not intractable, without status migrainosus; F41.9 Anxiety disorder, unspecified; D72.829 Elevated white blood cell count, unspecified; F17.210 Nicotine dependence, cigarettes, uncomplicated; R79.89 Other specified abnormal findings of blood chemistry; I11.0 Hypertensive heart disease with heart failure; I42.0 Dilated cardiomyopathy; I50.9 Heart failure, unspecified; Z87.11 Personal history of peptic ulcer disease; E43 Unspecified severe protein-calorie malnutrition; Z68.1 Body mass index [BMI] 19.9 or less, adult
CPT/HCPCS: 0241U-QW; 36415; 71046-TC-FY; 71275-TC; 80048; 80053; 80061; 80307; 81003; 82550; 82553; 83036; 83690; 83735; 83880; 84100; 84484; 85025; 85027; 85379; 85610; 85730; 87040; 87086; 93005; 93010; 93306-TC; 99285-25; J1644; Q9967

== ENCOUNTER 2023-07-08 16:57 | Emergency (ER) | payer OTHER ==
[2023-07-08 17:09] VITALS: BP 126/86; PULSE 98; RESP 18; TEMP 100.2; BMI 23.6
[2023-07-08] MEDS ORDERED: ACETAMINOPHEN INJECTION 100 ML IVPB ONE (17:41)
[2023-07-08] MEDS ORDERED: ONDANSETRON 4 MG/2 ML VIAL ONE (17:41)
[2023-07-08] MEDS ORDERED: MAG HYDROX/AL HYDROX/SIMETH 30 ML UNIT-DOSE CUP ONE (17:41)
[2023-07-08] MEDS ORDERED: FAMOTIDINE 20 MG/50 ML IVPB 20 MG/50 ML MG IVPB ONE (17:41)
[2023-07-08] MEDS: FAMOTIDINE 20 MG/50 ML IVPB 20 MG/50 ML MG IVPB ONE (18:15)
[2023-07-08] MEDS: ACETAMINOPHEN 1000 MG/100 ML BAG IVPB ONE (18:15)
[2023-07-08] MEDS: SODIUM CHLORIDE 0.9% 500 ML INFUS.BAG IV ONE (18:15)
[2023-07-08] MEDS: ONDANSETRON 4 MG/2 ML VIAL IVPUSH ONE (18:15)
[2023-07-08] MEDS: MAG HYDROX/AL HYDROX/SIMETH 30 ML UNIT-DOSE CUP PO ONE (18:29)
[2023-07-08 18:30] LABS: BASO % 0.3 % (0-2.0); EOS % 0.3 % (0-4.5); HEMATOCRIT 46.1 % (35.4-49); HEMOGLOBIN 15.8 GM/dL (11.7-16.9); LYMPH % 11.4 % (8-40); MCH 28.6 pg (25.7-33.7); MCHC 34.3 g/dl (32.0-35.9); MEAN CELL VOLUME 83.3 fl (80-96); MEAN PLT VOLUME 8.5 fl (7.5-11.1); PLATELET COUNT 225 10^3/uL (134-434); RBC 5.53 M/mm3 (4.00-5.60); RDW 13.7 % (11.9-15.9); WHITE BLOOD COUNT 8.1 K/mm3 (4.0-10.0)
[2023-07-08 18:47] LABS: POTASSIUM 4.2 mmol/L (3.5-5.1)
[2023-07-08 18:49] LABS: CALCIUM 9.5 mg/dL (8.5-10.1)
[2023-07-08 18:50] LABS: ALBUMIN 4.1 g/dl (3.4-5.0)
[2023-07-08 18:53] LABS: CREATININE 1.1 mg/dL (0.55-1.3)
[2023-07-08 18:54] LABS: BILIRUBIN,TOTAL 0.5 mg/dL (0.2-1)
== END 2023-07-08 19:17 | disposition home or self-care (01) ==
LOC: JER 16:57
PROC: 3E033GC Introduction of Other Therapeutic Substance into Peripheral Vein, Percutaneous Approach (ICD-10-PCS; principal; 2023-07-08)
PROC: 3E030NZ Introduction of Analgesics, Hypnotics, Sedatives into Peripheral Vein, Open Approach (ICD-10-PCS; 2023-07-08)
PROC: 3E030GC Introduction of Other Therapeutic Substance into Peripheral Vein, Open Approach (ICD-10-PCS; 2023-07-08)
DX: J10.1 Influenza due to other identified influenza virus with other respiratory manifestations (principal); R50.9 Fever, unspecified; R09.81 Nasal congestion; M79.10 Myalgia, unspecified site; R05.9 Cough, unspecified; R11.0 Nausea; R19.7 Diarrhea, unspecified; Z20.822 Contact with and (suspected) exposure to COVID-19
CPT/HCPCS: 0241U-QW; 36415; 71046-TC-FY; 80053; 82550; 83690; 84484; 85025; 93005; 93010; 99285-25; J0131